=== PATIENT | female | born 1970 | race Caucasian/White ===

== ENCOUNTER 2017-01-29 10:48 | Inpatient (IN) | payer BC ==
--- NOTE | 2017-01-28 18:24 | PREOPHP ---
DATE OF ADMISSION: 01/29/2017 REASON FOR ADMISSION: The patient is to be admitted tomorrow for a total abdominal hysterectomy. CHIEF COMPLAINT: Excessive vaginal bleeding. HISTORY OF PRESENT ILLNESS: This is a 46-year-old female, 6, para 6 who has been complaining of excessive vaginal bleeding, passing clots and flooding through linen in her underwear. She was found to have multiple fibroids as the reason for her bleeding. She was counseled to have a hysterectomy. A total abdominal hysterectomy is planned for her, as well as bilateral salpingectomies to prevent the future cancer of the ovary. The procedure was discussed and described in detail to the patient even graphically here in the office. The alternatives, benefits, the risks and possible complications like infection, hemorrhage, pelvic or organ injury during the procedure were discussed in detail. She was allowed to ask questions. All questions were answered to her satisfaction. She signed the appropriate surgical informed consent. PAST MEDICAL HISTORY: The patient denies any medical problems, including diabetes, cardiovascular disease, hypertension, renal disease, liver disease, or neurological problems. She has had an IUD now for several years. This was confirmed by the ultrasound that diagnosed the fibroids. ALLERGIES: SHE HAS NO KNOWN ALLERGIES. FAMILY HISTORY: Noncontributory. REVIEW OF SYSTEMS: A 12 point review of systems noncontributory. PHYSICAL EXAMINATION: GENERAL APPEARANCE: Well developed, well nourished, slightly obese. Alert and oriented times 3. VITAL SIGNS: Height is 5 foot 4, and weight 176 pounds. BMI is 30. Temperature to be 98, blood pressure 135/98, respirations 16 per minute, pulse is 80 per minute, and regular. HEENT: Unremarkable, within normal limits. Pupils are PERRLA. NECK: Supple. Thyroid is not palpable. There is no lymphadenopathy. No masses or lumps. LUNGS: Clear to percussion auscultation. HEART: Revealed normal sinus rhythm, without murmur. ABDOMEN: Soft. No organomegalies or hernias. PELVIC: Normal external genitalia. Cervix is normal without lesions. Uterus enlarged with several fibroids, irregular. Then is no adnexal masses. EXTREMITIES: Lower extremities within normal limits. NEUROLOGICAL: Normal. IMPRESSION: 1. Multiple uterine fibroids. 2. Severe vaginal bleeding. PLAN: The patient will be admitted for FERMÍN and bilateral salpingectomy tomorrow 01/29/2017. Dictated By: Stone Osman MD /sabrina/darnell /Document#: [id number] CC: Jeff Camilo MD;*[facility]*
[2017-01-29] VITALS (26 sets, daily range): BP systolic 99–149; BP diastolic 49–74; PULSE 50–84; RESP 10–25; Ht 154.9 cm; Wt 79.0 kg
[~2017-01-29] VITALS: Ht 154.9 cm; Wt 79.0 kg
[~2017-01-29 10:48] MED LIST: ACETAMINOPHEN 1000 MG/100 ML IVPB ONE; CEFAZOLIN 1 GM INJ ONE; LIDOCAINE 2% (SDV) 5 ML INJ ONE; ONDANSETRON 4 MG INJ ONE; PROPOFOL 200 MG INJ ONE
[2017-01-29] MEDS ORDERED: VASOPRESSIN 20 UNITS INJ ONE (12:17)
[2017-01-29] MEDS ORDERED: SODIUM CL BACTERIOSTATIC 30 ML INJ ONE (12:17)
[2017-01-29] MEDS ORDERED: morphine SULFATE/PF (10 MG/10 ML) INJ ONE (12:45)
[2017-01-29] MEDS ORDERED: MIDAZOLAM 1 MG/ML 2 ML INJ ONE (12:51)
[2017-01-29] MEDS ORDERED: FENTAnyl 50 MCG/ML VIAL ONE (12:51)
[2017-01-29] MEDS ORDERED: FENTAnyl 50 MCG/ML VIAL IV PRN ×3 (13:00)
[2017-01-29] MEDS ORDERED: HYDROmorphONE (0.2 MG/ML) 10ML SYG IV PRN ×3 (13:00)
[2017-01-29] MEDS ORDERED: OXYCODONE/ACETAMINOPHEN (5/325) TAB PO PRN ×2 (13:00)
[2017-01-29] MEDS ORDERED: ONDANSETRON 4 MG INJ IV PRN ×3 (13:00→16:00)
[2017-01-29] MEDS ORDERED: MEPERIDINE 25 MG INJ IV PRN (13:00)
[2017-01-29] MEDS ORDERED: EPHEDrine SULFATE 50 MG/5 ML SYG IV PRN (13:00)
[2017-01-29] MEDS ORDERED: LABETALOL HCL 20MG INJ IV PRN (13:00)
[2017-01-29] MEDS ORDERED: DIPHENHYDRAMINE 50 MG INJ IV PRN ×2 (13:00→16:00)
[2017-01-29] MEDS ORDERED: hydrALAzine 20 MG INJ IV PRN (13:00)
[2017-01-29] MEDS ORDERED: ROCURONIUM 50 MG INJ ONE (13:38)
[2017-01-29] MEDS ORDERED: DEXAMETHASONE 4 MG/ML 1 ML INJ ONE (14:14)
[2017-01-29] MEDS: LACTATED RINGER'S 1,000 ML IV SCH (14:41)
--- NOTE | 2017-01-29 14:53 | OPR ---
Date/Time of Note Date/Time of Note DATE: 01/29/17 TIME: 14:49 Operative Report Preoperative Diagnosis Fibroids.Excessive vaginal bleeding. Postoperative Diagnosis Same. Operation/Procedure Performed Total abdominal hysterectomy,bilateral SO Surgeon: SIL ACKERMAN MD Anesthesia: general, spinal Estimated Blood Loss: 250 - 300 ml's Specimens Uterus,tubes and ovaries. Complications: None SIL ACKERMAN MD Jan 29, 2017 14:53
[2017-01-29] MEDS ORDERED: morphine 4 MG/ML VIAL IV PRN (15:00)
[2017-01-29] MEDS ORDERED: ZOLPIDEM 5 MG TAB PO PRN (16:00)
[2017-01-29] MEDS ORDERED: KETOROLAC 30 MG INJ IV PRN (16:00)
[2017-01-29] MEDS ORDERED: HYDROCODONE/APAP (5/325) TAB PO PRN (16:00)
[2017-01-29] MEDS ORDERED: HYDROmorphONE 1 MG/ML SYG IV PRN ×2 (16:00)
[2017-01-29] MEDS ORDERED: NALOXONE (0.4 MG/ML) INJ IV PRN (16:00)
--- NOTE | 2017-01-29 16:46 | OPR ---
DATE OF OPERATION: 01/29/2017 PREOPERATIVE DIAGNOSIS: Excessive vaginal bleeding with multiple fibroids. POSTOPERATIVE DIAGNOSIS: Same as above. OPERATION PERFORMED: Total abdominal hysterectomy, bilateral salpingo-oophorectomy. SURGEON: Dr. Stone Osman. AUTISM MOTOR SPECIALIST: Dr. Jeff Camilo. ANESTHESIA: Spinal and general by Dr. Taylor. ESTIMATED BLOOD LOSS: 300 cc. COMPLICATIONS: None. SPECIMENS: Patient's uterus, tubes, and ovaries were sent to pathology. OPERATIVE PROCEDURE AND FINDINGS: With the patient under general anesthesia after spinal anesthetic, she was laying on the table in the dorsal recumbent position. Her abdomen was prepped with ChloraPrep and her perineum and vagina with Betadine. The Ponce catheter was inserted. After 3 minutes, the patient was draped in the usual sterile fashion for this procedure. A Pfannenstiel incision was then carried through all layers of the abdominal wall. Once in the abdomen an enlarged uterus with multiple fibroids was found. Two normal ovaries and tubes were also found. There was no other sign of any pathology in the pelvis. The uterus was grasped with a [place] clamp and flipped up. An [place] self-retaining retractor was placed as well as vaginal abdominal packing. The hysterectomy was started on the left side by the clamp and the round ligament with the LigaSure and transected it. Then the broad ligament was opened anteriorly. The same was done on the contralateral side. The bladder was dissected away and removed from the uterine isthmus. The left infundibulopelvic ligament was isolated, and then cauterized with LigaSure and cut. Good hemostasis was observed. The same was done on the contralateral side. The uterine pedicles were skeletonized bilaterally. They were held with curved Manpreet clamps, cut and sutured with 0 Vicryl. Good hemostasis was obtained. The cardinal ligaments were isolated with straight Manpreet clamps, cut, and sutured with 0 Vicryl. The uterosacral ligaments were then isolated and clamped with curved Manpreet clamps, cut and sutured with 0 Vicryl. The bladder was dissected away further from the uterine isthmus. The fundus of the uterus was removed with the cautery. Then the dissection of the cervix was completed. The vagina was entered posteriorly and the cervix removed. Then the vagina was closed with individual [id number] sutures of 0 Vicryl. Good hemostasis was obtained. The pelvis was thoroughly washed with warm saline. This was suctioned out. No active bleeders were found. The vaginal cuff was peritonealized with continuous stitch of double 0 Chromic. The pelvis was thoroughly washed with water. No active bleeding was found. All the instruments and packing were removed from the patient's abdomen. The abdomen was closed in layers. The peritoneum was stitched with 0 Chromic. The fascia was closed with 2 convergent running sutures of 0 Vicryl. Finally, the edges of the skin were brought together with subcuticular 3-0 Monocryl. Sterile pressure dressing was applied. Patient taken to recovery room with all vital signs stable. ESTIMATED BLOOD LOSS: 300 cc of blood. Needle, sponge, and instrument count at the end of the procedure was correct twice. Dictated By: Stone Osman MD /fnt/clp /Document#: [id number] CC: Jeff Camilo MD; Dr. Taylor;*End*
[2017-01-29] MEDS: CEFAZOLIN 2 GM/50 ML (PMX) 50 ML IVPB SCH (23:05)
[2017-01-29] MEDS: KETOROLAC 30 MG INJ IV PRN (23:05)
[2017-01-30] MEDS: LACTATED RINGER'S 1,000 ML IV SCH ×3 (01:08→22:07)
[2017-01-30 02:00] VITALS: BP 109/60; RESP 20
[2017-01-30] MEDS: CEFAZOLIN 2 GM/50 ML (PMX) 50 ML IVPB SCH ×2 (05:43→13:35)
[2017-01-30] MEDS: PANTOPRAZOLE 40 MG INJ IV SCH (05:43)
[2017-01-30 06:29] LABS: BASOPHILS % 0.1 % (0.0-2.0); HEMATOCRIT 28.6 % (37.0-47.0); HEMOGLOBIN 8.7 g/dl (12.0-16.0); LYMPHOCYTES # 1.2 10^3/ul (0.8-2.9); LYMPHOCYTES % 7.6 % (15.0-51.0); MEAN CORPUSCULAR HEMOGLOBIN 24.5 pg (29.0-33.0); MEAN CORPUSCULAR HGB CONC 30.4 g/dl (32.0-37.0); MEAN CORPUSCULAR VOLUME 80.6 fl (82.0-101.0); MEAN PLATELET VOLUME 10.2 fl (7.4-10.4); MONOCYTE # 1.1 10^3/ul (0.3-0.9); MONOCYTES % 7.3 % (0.0-11.0); NEUTROPHIL # 12.9 10^3/ul (1.6-7.5); NEUTROPHILS % 84.4 % (39.0-77.0); PLATELET COUNT 365 10^3/UL (140-415); RED BLOOD COUNT 3.55 10^6/ul (4.20-5.40); RED CELL DISTRIBUTION WIDTH 16.7 % (11.5-14.5); WHITE BLOOD COUNT 15.2 10^3/ul (4.8-10.8)
[2017-01-30 06:59] LABS: CALCIUM 8.7 mg/dl (8.4-10.2); CREATININE 0.82 mg/dl (0.44-1.00); POTASSIUM 4.1 mmol/L (3.5-5.1)
[2017-01-30 08:21] VITALS: BP 112/57; RESP 20
--- NOTE | 2017-01-30 08:26 | OPPN ---
Date/Time of Note Date/Time of Note DATE: 01/30/17 TIME: 08:24 Anesthesia Follow up Anesthesia Follow up Last documented vital signs Vital Signs Date Time Temp Pulse Resp B/P Pulse Ox O2 Delivery O2 Flow Rate FiO2 01/30/17 08:21 98.2 79 20 112/57 95 01/29/17 16:58 Nasal Cannula 01/29/17 15:46 2.0 Respiratory function: WNL Cardiovascular function: WNL Comments post op day1 status post total abdominal hysterectomy with spinal duramorph for post operative pain management. pt without complaints, and pain well controlled with intrathecal duramorph supplemented with iv toradol. satisfactory pain control without adverse side effects. ARIELLA ARMENTA Jan 30, 2017 08:26
--- NOTE | 2017-01-30 08:36 | PN ---
Date/Time of Note Date/Time of Note DATE: 01/30/17 TIME: 08:31 Assessment/Plan VTE Prophylaxis VTE Prophylaxis Intervention: ambulation, anti-embolic stocking Lines/Catheters IV [facility] ([facility] Peripheral IV Urinary Cath still in place: Yes Assessment/Plan Chief Complaint/Hosp Course Doing well,however WBC are 15 with neutrophiles predominance.Afebrile. Problems: Assessment/Plan Start Lovenox for DVT prophylaxis and Flagyl for anaerobe coverage Repeat cbc in AM Subjective 24 Hr Interval Summary Free Text/Dictation Sitting up in bed in good spirits.Asking for food. Exam/Review of Systems Vital Signs Vitals Vital Signs Date Time Temp Pulse Resp B/P Pulse Ox O2 Delivery O2 Flow Rate FiO2 01/30/17 08:21 98.2 79 20 112/57 95 01/29/17 16:58 Nasal Cannula 01/29/17 15:46 2.0 Intake and Output 01/29/17 01/29/17 01/30/17 15:00 23:00 07:00 Intake Total 2700 ml 680 ml Output Total 400 ml 300 ml 600 ml Balance 2300 ml -300 ml 80 ml Results Result Diagram: 01/30/17 0551 01/30/17 0551 Results 24 hrs Laboratory Tests Test 01/30/17 05:51 White Blood Count 15.2 H Red Blood Count 3.55 L Hemoglobin 8.7 L Hematocrit 28.6 L Mean Corpuscular Volume 80.6 L Mean Corpuscular Hemoglobin 24.5 L Mean Corpuscular Hemoglobin Concent 30.4 L Red Cell Distribution Width 16.7 H Platelet Count 365 Mean Platelet Volume 10.2 Neutrophils % 84.4 H Lymphocytes % 7.6 L Monocytes % 7.3 Eosinophils % 0.0 Basophils % 0.1 Nucleated Red Blood Cells % 0.0 Neutrophils # 12.9 H Lymphocytes # 1.2 Monocytes # 1.1 H Eosinophils # 0.0 Basophils # 0.0 Nucleated Red Blood Cells # 0.0 Sodium Level 146 H Potassium Level 4.1 Chloride Level 105 Carbon Dioxide Level 27 Anion Gap 18 H Blood Urea Nitrogen 17 Creatinine 0.82 Glucose Level 119 Calcium Level 8.7 Medications Medications Current Medications Lactated Ringer's 1,000 ml @ 100 mls/hr Q10H IV Last administered on 01/30/17t 01:08; Admin Dose 100 MLS/HR; Start 01/29/17 at 14:41 Cefazolin Sodium/ Dextrose (Ancef 2 Gm/50 ml (Pmx)) 50 ml @ 100 mls/hr Q8 IVPB Last administered on 01/30/17 05:43; Admin Dose 100 MLS/HR; Start 01/29/17 at 22:00; Stop 01/30/17 at 14:29 Acetaminophen (Tylenol Tab) 650 mg Q4H PRN PO PAIN LEVEL 1-5; Start 01/29/17 at 15:00 Ibuprofen (Motrin) 600 mg Q8H PRN PO PAIN AND OR ELEVATED TEMP; Start 01/29/17 at 15:00 Oxycodone/ Acetaminophen (Percocet (5/ 325)) 1 tab Q4H PRN PO PAIN LEVEL 6-10; Start 01/29/17 at 15:00 Morphine Sulfate (morphine) 2 mg Q2H PRN IV BREAKTHROUGH PAIN; Start 01/29/17 at 15:00 Ondansetron HCl (Zofran Inj) 4 mg Q6H PRN IV NAUSEA AND/OR VOMITING Last administered on 01/29/17 23:05; Admin Dose 4 MG; Start 01/29/17 at 15:00 Oxycodone/ Acetaminophen (Percocet (5/ 325)) 2 tab Q4H PRN PO PAIN; Start at 15:00 Ketorolac Tromethamine (Toradol) 30 mg Q6H PRN IV PAIN Last administered on 01/29 23:05; Admin Dose 30 MG; Start 01/29/17 at 15:00; Stop 02/01/17 at 14:59 Pantoprazole (Protonix Iv) 40 mg DAILY@06 IV Last administered on 01/30/17 05: 43; Admin Dose 40 MG; Start 01/30/17 at 06:00 Hydromorphone HCl (Dilaudid) 0.2 mg Q2H PRN IV PAIN LEVEL 1-5; Start 01/29/17 at 16:00; Stop 01/30/17 at 14:00 Hydromorphone HCl (Dilaudid) 0.4 mg Q2H PRN IV PAIN LEVEL 6-10; Start 01/29/17 at 16:00; Stop 01/30/17 at 14:00 Ketorolac Tromethamine (Toradol) 30 mg Q6H PRN IV PAIN LEVEL 6-10; Start at 16:00; Stop 01/30/17 at 14:00 Acetaminophen/ Hydrocodone Bitart ([place] (5/325)) 1 tab Q4H PRN PO PAIN LEVEL 4 -6; Start 01/29/17 at 16:00; Stop 01/30/17 at 14:00 Diphenhydramine HCl (Benadryl) 25 mg Q4H PRN IV PRURITUS; Start 01/29/17 at 16: 00; Stop 01/30/17 at 14:00 Ondansetron HCl (Zofran Inj) 4 mg Q6H PRN IV NAUSEA AND/OR VOMITING; Start 01/29 at 16:00; Stop 01/30/17 at 14:00 Naloxone HCl (Narcan) 0.2 mg Q2M PRN IV FOR RESP RATE 8 OR LESS; Start 01/29/17 at 16:00; Stop 01/30/17 at 14:00 SIL ACKERMAN MD Jan 30, 2017 08:36
[2017-01-30] MEDS: metroNIDAZOLE 500 MG/NS (PMX) 100 ML IVPB SCH ×3 (09:10→22:05)
[2017-01-30] MEDS: KETOROLAC 30 MG INJ IV PRN ×2 (09:10→15:36)
[2017-01-30] MEDS: ENOXAPARIN 40 MG/0.4 ML SYG SC SCH (09:11)
[2017-01-30 15:26] VITALS: BP 140/60; RESP 20
[2017-01-30] MEDS: OXYCODONE/ACETAMINOPHEN (5/325) TAB PO PRN ×2 (18:21→22:58)
[2017-01-30 20:00] VITALS: BP 137/72; RESP 20
[2017-01-31 02:00] VITALS: BP 124/67; RESP 20
[2017-01-31] MEDS: ACETAMINOPHEN 325 MG TAB PO PRN (03:12)
[2017-01-31] MEDS: metroNIDAZOLE 500 MG/NS (PMX) 100 ML IVPB SCH ×3 (05:18→22:04)
[2017-01-31] MEDS: PANTOPRAZOLE 40 MG INJ IV SCH (05:18)
[2017-01-31 05:56] LABS: BASOPHILS % 0.2 % (0.0-2.0); EOSINOPHILS # 0.1 10^3/ul (0.0-0.5); EOSINOPHILS % 1.1 % (0.0-7.0); HEMATOCRIT 26.4 % (37.0-47.0); LYMPHOCYTES # 2.2 10^3/ul (0.8-2.9); LYMPHOCYTES % 23.4 % (15.0-51.0); MEAN CORPUSCULAR HEMOGLOBIN 24.3 pg (29.0-33.0); MEAN CORPUSCULAR HGB CONC 30.3 g/dl (32.0-37.0); MEAN CORPUSCULAR VOLUME 80.2 fl (82.0-101.0); MEAN PLATELET VOLUME 10.4 fl (7.4-10.4); MONOCYTE # 0.7 10^3/ul (0.3-0.9); MONOCYTES % 7.1 % (0.0-11.0); NEUTROPHIL # 6.3 10^3/ul (1.6-7.5); PLATELET COUNT 313 10^3/UL (140-415); RED BLOOD COUNT 3.29 10^6/ul (4.20-5.40); WHITE BLOOD COUNT 9.3 10^3/ul (4.8-10.8)
[2017-01-31] MEDS: LACTATED RINGER'S 1,000 ML IV SCH (06:41)
[2017-01-31] MEDS: KETOROLAC 30 MG INJ IV PRN (07:53)
[2017-01-31 08:00] VITALS: BP 139/80; RESP 18
[2017-01-31] MEDS: ENOXAPARIN 40 MG/0.4 ML SYG SC SCH (08:00)
[2017-01-31] MEDS: OXYCODONE/ACETAMINOPHEN (5/325) TAB PO PRN ×2 (11:02→22:04)
[2017-01-31] MEDS ORDERED: morphine 2 MG INJ IV PRN (12:00)
[2017-01-31] MEDS: MAGNESIUM HYDROXIDE 30ML CUP PO SCH ×2 (13:58→22:04)
[2017-01-31 14:00] VITALS: BP 148/77; RESP 19
[2017-01-31] MEDS: IBUPROFEN 600 MG TAB PO PRN (18:05)
--- NOTE | 2017-01-31 20:17 | PN ---
Date/Time of Note Date/Time of Note DATE: 01/31/17 TIME: 20:04 Assessment/Plan VTE Prophylaxis VTE Prophylaxis Intervention: ambulation, LMWH Lines/Catheters IV Catheter Type (from Nrsg): Peripheral IV Ponec in Place (from Nrsg): No Assessment/Plan Assessment/Plan post FERMÍN BSo #2 stable plan d/s home in am Subjective 24 Hr Interval Summary S; c/oepigastric pain and incisional pain flatus+ no b.m vomit x1 void ok Constitutional: flatus, other Pain Control: moderate Exam/Review of Systems Vital Signs Vitals Vital Signs Date Time Temp Pulse Resp B/P Pulse Ox O2 Delivery O2 Flow Rate FiO2 01/31/17 14:00 98.1 79 19 148/77 99 01/29/17 16:58 Nasal Cannula 01/29/17 15:46 2.0 Intake and Output 01/30/17 01/30/17 01/31/17 15:00 23:00 07:00 Intake Total 150 ml 1800 ml 1100 ml Balance 150 ml 1800 ml 1100 ml Exam Free Text/Dictation abdomen soft wound dry no vaginal bleeding calf neg for tenderness wbc reduced urine culture no growth path uterine fibroid and adenomyosis Constitutional: alert, oriented, well developed Psych: nl mood/affect, no complaints Head: atraumatic, normocephalic Eyes: EOMI, nl conjunctiva, nl lids, nl sclera ENMT: mucosa pink and moist, nl external ears & nose, nl lips & teeth, nl nasal mucosa & septum Neck: non-tender, supple Respiratory: clear to auscultation, normal air movement Cardiovascular: nl pulses, regular rate and rhythm Gastrointestinal: nl liver, spleen, non-tender, other, soft Musculoskeletal: nl extremities to inspection, nl gait and stance Extremities: normal pulses Neurological: VAULT KEEPER II-XII intact, nl mental status, nl speech, nl strength Skin: nl turgor, rash or lesions Lymph: nl lymph nodes Results Result Diagram: 01/31/17 0455 01/30/17 0551 LIZET HAIR MD Jan 31, 2017 20:14
[2017-01-31 21:10] VITALS: BP 145/77; RESP 18
[2017-01-31] MEDS: FAMOTIDINE 20 MG TAB PO SCH (22:04)
[2017-02-01 02:52] VITALS: BP 137/71; RESP 16
[2017-02-01] MEDS: metroNIDAZOLE 500 MG/NS (PMX) 100 ML IVPB SCH ×3 (05:32→22:05)
[2017-02-01] MEDS: PANTOPRAZOLE 40 MG INJ IV SCH (05:32)
[2017-02-01] MEDS: IBUPROFEN 600 MG TAB PO PRN (05:34)
[2017-02-01] MEDS: KETOROLAC 30 MG INJ IV PRN ×2 (07:49→14:02)
[2017-02-01] MEDS: MAGNESIUM HYDROXIDE 30ML CUP PO SCH ×2 (09:00→22:06)
--- NOTE | 2017-02-01 09:00 | PN ---
Date/Time of Note Date/Time of Note DATE: 02/01/17 TIME: 08:54 Assessment/Plan Lines/Catheters IV Catheter Type (from Nrsg): Saline Lock Pnoce in Place (from Nrsg): No Subjective 24 Hr Interval Summary S: epigastric pain is far better no more vomiting but had x2 watery diarrhea O: vss stable afebrile abdomen soft wound dry no vaginal bleeding ext neg A S/P FERMÍN BSO stable diarrhea P stool culture if continue stay on clear liquid today Feeding: clear Pain Control: mild Exam/Review of Systems Vital Signs Vitals Vital Signs Date Time Temp Pulse Resp B/P Pulse Ox O2 Delivery O2 Flow Rate FiO2 02/01/17 02:52 98.1 82 16 137/71 96 01/29/17 16:58 Nasal Cannula 01/29/17 15:46 2.0 Intake and Output 01/31/17 01/31/17 02/01/17 15:00 23:00 07:00 Intake Total 600 ml 840 ml 720 ml Balance 600 ml 840 ml 720 ml Results Result Diagram: 01/31/17 0455 01/30/17 0551 LIZET HAIR MD Feb 01, 2017 08:59
[2017-02-01] MEDS: FAMOTIDINE 20 MG TAB PO SCH ×2 (09:09→22:05)
[2017-02-01] MEDS: ENOXAPARIN 40 MG/0.4 ML SYG SC SCH (09:11)
[2017-02-01 09:57] VITALS: BP 138/78; RESP 18
[2017-02-01] MEDS: OXYCODONE/ACETAMINOPHEN (5/325) TAB PO PRN (12:40)
[2017-02-01 15:58] VITALS: BP 166/90; RESP 18
[2017-02-01 19:53] VITALS: BP 161/73; RESP 18
[2017-02-01 22:04] VITALS: BP 182/87; PULSE 82
[2017-02-01 22:52] VITALS: BP 164/87; PULSE 80
[2017-02-01] MEDS: LABETALOL 200 MG TAB PO SCH (22:54)
[2017-02-02] VITALS (7 sets, daily range): BP systolic 112–163; BP diastolic 59–87; PULSE 72–82; RESP 16–19
[2017-02-02] MEDS: metroNIDAZOLE 500 MG/NS (PMX) 100 ML IVPB SCH ×3 (05:13→21:15)
[2017-02-02] MEDS: PANTOPRAZOLE 40 MG INJ IV SCH (05:13)
[2017-02-02] MEDS: ACETAMINOPHEN 325 MG TAB PO PRN (07:53)
[2017-02-02] MEDS: FAMOTIDINE 20 MG TAB PO SCH ×2 (08:16→20:48)
[2017-02-02] MEDS: LABETALOL 200 MG TAB PO SCH (08:17)
[2017-02-02] MEDS: MAGNESIUM HYDROXIDE 30ML CUP PO SCH ×2 (08:17→20:46)
[2017-02-02] MEDS: ENOXAPARIN 40 MG/0.4 ML SYG SC SCH (08:18)
--- NOTE | 2017-02-02 08:37 | PN ---
Date/Time of Note Date/Time of Note DATE: 02/02/17 TIME: 08:33 Assessment/Plan VTE Prophylaxis VTE Prophylaxis Intervention: ambulation, anti-embolic stocking, LMWH Lines/Catheters IV Catheter Type (from [facility]): Saline Lock Urinary Cath still in place: No Assessment/Plan Chief Complaint/Hosp Course Doing well,however WBC are 15 with neutrophiles predominance.Afebrile. Problems: Assessment/Plan Hypertensive crisis,the patient was not aware of being hypertensive. Cont'd Hospitalization Reason: Severe hypertension,consult with Hospitalist for better control. Subjective 24 Hr Interval Summary Free Text/Dictation Complains of headaches,had very high BPs last night and was medicated with Labetalol 200 mg.BP still high,will consult with Internal medicine for better control.Also had diarrhea, but has been taking MOM BID.Stop this med now. Exam/Review of Systems Vital Signs Vitals Vital Signs Date Time Temp Pulse Resp B/P Pulse Ox O2 Delivery O2 Flow Rate FiO2 02/02/17 02:03 98.5 82 16 155/85 97 01/29/17 16:58 Nasal Cannula 01/29/17 15:46 2.0 Intake and Output 02/01/17 02/01/17 02/02/17 15:00 23:00 07:00 Intake Total 820 ml 500 ml Balance 820 ml 500 ml Results Result Diagram: 01/31/17 0455 01/30/17 0551 Results 24 hrs Laboratory Tests Test 02/02/17 05:57 02/02/17 05:57 Lab Scanned Report LAB REFERENCE LAB Medications Medications Current Medications Acetaminophen (Tylenol Tab) 650 mg Q4H PRN PO PAIN LEVEL 1-5 Last administered on 02/02/17 07:53; Admin Dose 650 MG; Start 01/29/17 at 15:00 Ibuprofen (Motrin) 600 mg Q8H PRN PO PAIN AND OR ELEVATED TEMP Last administered on 02/01/17 05:34; Admin Dose 600 MG; Start 01/29/17 at 15:00 Oxycodone/ Acetaminophen (Percocet (5/ 325)) 1 tab Q4H PRN PO PAIN LEVEL 6-10 Last administered on 01/31/17 22:04; Admin Dose 1 TAB; Start 01/29/17 at 15:00 Ondansetron HCl (Zofran Inj) 4 mg Q6H PRN IV NAUSEA AND/OR VOMITING Last administered on 01/29/17 23:05; Admin Dose 4 MG; Start 01/29/17 at 15:00 Oxycodone/ Acetaminophen (Percocet (5/ 325)) 2 tab Q4H PRN PO PAIN Last administered on 02/01/17 12:40; Admin Dose 2 TAB; Start 01/29/17 at 15:00 Pantoprazole (Protonix Iv) 40 mg DAILY@06 IV Last administered on 02/02/17 05: 13; Admin Dose 40 MG; Start 01/30/17 at 06:00 Enoxaparin Sodium 40 mg 40 mg DAILY SC Last administered on 02/02/17 08:18; Admin Dose 40 MG; Start 01/30/17 at 09:00 Metronidazole (Flagyl 500 Mg (Pmx)) 100 ml @ 100 mls/hr Q8 IVPB Last administered on 02/02/17 05:13; Admin Dose 100 MLS/HR; Start 01/30/17 at 09:00 Morphine Sulfate (morphine) 2 mg Q2H PRN IV BREAKTHROUGH PAIN; Start 01/31/17 at 12:00 Magnesium Hydroxide (Milk Of Mag) 30 ml BID PO Last administered on 02/02/17 08 :17; Admin Dose 30 ML; Start 01/31/17 at 13:30 Famotidine (Pepcid) 20 mg BID PO Last administered on 02/02/17 08:16; Admin Dose 20 MG; Start 01/31/17 at 21:00 Labetalol HCl (Normodyne) 200 mg BID PO Last administered on 02/02/17 08:17; Admin Dose 200 MG; Start 02/01/17 at 22:30 SIL ACKERMAN MD Feb 02, 2017 08:37
[2017-02-02] MEDS ORDERED: AMLODIPINE 10 MG TAB PO ONE (13:00)
[2017-02-02] MEDS: OXYCODONE/ACETAMINOPHEN (5/325) TAB PO PRN (13:11)
[2017-02-02] MEDS: IBUPROFEN 600 MG TAB PO PRN (14:07)
--- NOTE | 2017-02-02 18:37 | CONS ---
Date/Time of Note Date/Time of Note DATE: 02/02/17 TIME: 18:35 Assessment/Plan Assessment/Plan Additional Assessment/Plan 46 yo F with pmhx fibroids sp elective FERMÍN BSO 8.3. Hospitalist service consulted for persistently elevated BPs. Given pt without sig pain, suspect this is actually true primary/essential hypertension. Only known risk factor in this patient is her obesity PLAN start norvasc, pt advised to watch for leg swelling As no evidence of CKD, no compelling indication to pick acei check a1c, lipids, UA (for protein), EKG hospitalist service will cont to follow Consultation Date/Type/Reason Admit Date/Time Jan 29, 2017 at 10:48 Type of Consultation: hospitalist Reason for Consultation elevated BP Hx of Present Illness 46 yo F with pmhx fibroids admitted for elective hysterectomy. Post op pt noted to have persistently elevated BPs which prompted hospitalist consult. Pt denies any previous hx consistently elevated BPs. Denies sig abd pain. Reports feeling a little anxious. No CP or SOB. PMHx: fibroids Fam hx: no htn, +DM in mom Psychological: nl mood/affect, no complaints Social History Smoking Status: Never smoker Exam/Review of Systems Vital Signs Vitals Vital Signs Date Time Temp Pulse Resp B/P Pulse Ox O2 Delivery O2 Flow Rate FiO2 02/02/17 14:00 98.2 84 16 137/67 98 01/29/17 16:58 Nasal Cannula 01/29/17 15:46 2.0 Intake and Output 02/01/17 02/01/17 02/02/17 15:00 23:00 07:00 Intake Total 820 ml 500 ml Balance 820 ml 500 ml Exam nad EOMI MMM no mrg lungs clear abd soft surgical site c/d/i no rashes no le edema labs noted: +AG, Cr nl Results Result Diagram: 01/31/17 0455 01/30/17 0551 Results 24 hrs Laboratory Tests Test 02/02/17 05:57 02/02/17 05:57 Lab Scanned Report LAB REFERENCE LAB Medications Medications Current Medications Acetaminophen (Tylenol Tab) 650 mg Q4H PRN PO PAIN LEVEL 1-5 Last administered on 02/02/17t 07:53; Admin Dose 650 MG; Start 01/29/17 at 15:00 Ibuprofen (Motrin) 600 mg Q8H PRN PO PAIN AND OR ELEVATED TEMP Last administered on 02/02/17 14:07; Admin Dose 600 MG; Start 01/29/17 at 15:00 Oxycodone/ Acetaminophen (Percocet (5/ 325)) 1 tab Q4H PRN PO PAIN LEVEL 6-10 Last administered on 01/31/17 22:04; Admin Dose 1 TAB; Start 01/29/17 at 15:00 Ondansetron HCl (Zofran Inj) 4 mg Q6H PRN IV NAUSEA AND/OR VOMITING Last administered on 01/29/17 23:05; Admin Dose 4 MG; Start 01/29/17 at 15:00 Oxycodone/ Acetaminophen (Percocet (5/ 325)) 2 tab Q4H PRN PO PAIN Last administered on 02/02/17 13:11; Admin Dose 2 TAB; Start 01/29/17 at 15:00 Pantoprazole (Protonix Iv) 40 mg DAILY@06 IV Last administered on 02/02/17 05: 13; Admin Dose 40 MG; Start 01/30/17 at 06:00 Enoxaparin Sodium 40 mg 40 mg DAILY SC Last administered on 02/02/17 08:18; Admin Dose 40 MG; Start 01/30/17 at 09:00 Metronidazole (Flagyl 500 Mg (Pmx)) 100 ml @ 100 mls/hr Q8 IVPB Last administered on 02/02/17 13:08; Admin Dose 100 MLS/HR; Start 01/30/17 at 09:00 Morphine Sulfate (morphine) 2 mg Q2H PRN IV BREAKTHROUGH PAIN; Start 01/31/17 at 12:00 Magnesium Hydroxide (Milk Of Mag) 30 ml BID PO Last administered on 02/02/17 08 :17; Admin Dose 30 ML; Start 01/31/17 at 13:30 Famotidine (Pepcid) 20 mg BID PO Last administered on 02/02/17 08:16; Admin Dose 20 MG; Start 01/31/17 at 21:00 Amlodipine Besylate (Norvasc) 10 mg DAILY PO ; Start 02/03/17 at 09:00 NAYELI VALENZUELA MD Feb 02, 2017 18:37
[2017-02-02 23:11] LABS: ADD UMIC YES; UR AMORPHOUS CRYSTAL FEW /HPF (NONE SEEN); UR ASCORBIC ACID NEGATIVE (NEGATIVE); UR BILIRUBIN (Dip) NEGATIVE (NEGATIVE); UR BLOOD (Dip) 2+ mg/dL (NEGATIVE); UR CLARITY CLOUDY (CLEAR); UR COLOR YELLOW (YELLOW); UR GLUCOSE (Dip) NEGATIVE (NEGATIVE); UR KETONES (Dip) NEGATIVE (NEGATIVE); UR LEUKOCYTE ESTERASE (Dip) TRACE Leu/ul (NEGATIVE); UR NITRITE (Dip) NEGATIVE (NEGATIVE); UR RBC 7 /HPF (0-5); UR SQUAMOUS EPITHELIAL CELL FEW /HPF (FEW); UR TOTAL PROTEIN (Dip) 1+ mg/dl (NEGATIVE); UR UROBILINOGEN (Dip) NEGATIVE (NEGATIVE)
[2017-02-03 02:36] VITALS: BP 134/64; RESP 19
[2017-02-03] MEDS: metroNIDAZOLE 500 MG/NS (PMX) 100 ML IVPB SCH ×3 (05:16→21:13)
[2017-02-03] MEDS: PANTOPRAZOLE 40 MG INJ IV SCH (05:16)
[2017-02-03 06:40] LABS: CHOL/HDL RATIO 6.6 RATIO; CREATININE 0.83 mg/dl (0.44-1.00); POTASSIUM 3.8 mmol/L (3.5-5.1)
[2017-02-03 08:07] VITALS: BP 140/73; RESP 20
[2017-02-03] MEDS: FAMOTIDINE 20 MG TAB PO SCH ×2 (08:48→21:13)
[2017-02-03] MEDS: MAGNESIUM HYDROXIDE 30ML CUP PO SCH ×2 (08:48→21:13)
[2017-02-03] MEDS: ENOXAPARIN 40 MG/0.4 ML SYG SC SCH (08:51)
[2017-02-03] MEDS ORDERED: AMLODIPINE 10 MG TAB PO SCH (09:00)
[2017-02-03] MEDS: OXYCODONE/ACETAMINOPHEN (5/325) TAB PO PRN (10:37)
[2017-02-03 11:13] LABS: ADD UMIC YES; UR ASCORBIC ACID NEGATIVE (NEGATIVE); UR BILIRUBIN (Dip) NEGATIVE (NEGATIVE); UR BLOOD (Dip) 2+ mg/dL (NEGATIVE); UR CLARITY CLEAR (CLEAR); UR COLOR YELLOW (YELLOW); UR GLUCOSE (Dip) NEGATIVE (NEGATIVE); UR KETONES (Dip) NEGATIVE (NEGATIVE); UR LEUKOCYTE ESTERASE (Dip) TRACE Leu/ul (NEGATIVE); UR NITRITE (Dip) NEGATIVE (NEGATIVE); UR RBC 21 /HPF (0-5); UR SPECIFIC GRAVITY (Dip) 1.014 (1.003-1.030); UR TOTAL PROTEIN (Dip) 2+ mg/dl (NEGATIVE); UR UROBILINOGEN (Dip) NEGATIVE (NEGATIVE)
[2017-02-03 14:30] VITALS: BP 133/62; RESP 20
--- NOTE | 2017-02-03 16:19 | CONS ---
Date/Time of Note Date/Time of Note DATE: 02/03/17 TIME: 16:16 Assessment/Plan Assessment/Plan Additional Assessment/Plan 46 yo F with pmhx fibroids sp elective FERMÍN BSO 8.3. Hospitalist service consulted for persistently elevated BPs. BP improved with ccb, however UA with sig proteinuria of unclear etio. PLAN change norvasc to acei given proteinuria nephrology consult hospitalist service will cont to follow Consultation Date/Type/Reason Admit Date/Time Jan 29, 2017 at 10:48 Initial Consult Date Type of Consultation: hospitalist 24 HR Interval Summary Free Text/Dictation Pt feels well and BPs improved Exam/Review of Systems Vital Signs Vitals Vital Signs Date Time Temp Pulse Resp B/P Pulse Ox O2 Delivery O2 Flow Rate FiO2 02/03/17 14:30 98.1 85 20 133/62 96 Intake and Output 02/02/17 02/02/17 02/03/17 15:00 23:00 07:00 Intake Total 100 ml 1120 ml 400 ml Balance 100 ml 1120 ml 400 ml Exam nad no mrg lungs clear abd soft no rashes UA with 1-2+ protein, +microhematuria, p/c ratio ~1. EKG NSR. a1c nl, lipids ok Results Result Diagram: 01/31/17 0455 02/03/17 0512 Results 24 hrs Laboratory Tests Test 02/02/17 22:35 02/03/17 05:12 02/03/17 10:40 Urine Color YELLOW YELLOW Urine Clarity CLOUDY A CLEAR Urine pH 8.0 6.0 Urine Specific [place] 1.010 1.014 Urine Ketones NEGATIVE NEGATIVE Urine Nitrite NEGATIVE NEGATIVE Urine Bilirubin NEGATIVE NEGATIVE Urine Urobilinogen NEGATIVE NEGATIVE Urine Leukocyte Esterase TRACE A TRACE A Urine Microscopic RBC 7 H 21 H Urine Microscopic WBC 4 6 H Urine Squamous Epithelial Cells FEW Urine Amorphous Crystals FEW A Urine Hemoglobin 2+ H 2+ H Urine Glucose NEGATIVE NEGATIVE Urine Total Protein 1+ H 2+ H Sodium Level 145 H Potassium Level 3.8 Chloride Level 105 Carbon Dioxide Level 27 Anion Gap 17 H Blood Urea Nitrogen 16 Creatinine 0.83 Glucose Level 98 Hemoglobin A1c 5.4 Calcium Level 9.0 Triglycerides Level 190 H Cholesterol Level 179 LDL Cholesterol, Calculated 114 HDL Cholesterol 27 L Cholesterol/HDL Ratio 6.6 Urine Random Creatinine 81.79 Medications Medications Current Medications Acetaminophen (Tylenol Tab) 650 mg Q4H PRN PO PAIN LEVEL 1-5 Last administered on 02/02/17 07:53; Admin Dose 650 MG; Start 01/29/17 at 15:00 Ibuprofen (Motrin) 600 mg Q8H PRN PO PAIN AND OR ELEVATED TEMP Last administered on 02/02/17 14:07; Admin Dose 600 MG; Start 01/29/17 at 15:00 Oxycodone/ Acetaminophen (Percocet (5/ 325)) 1 tab Q4H PRN PO PAIN LEVEL 6-10 Last administered on 02/03/17 10:37; Admin Dose 1 TAB; Start 01/29/17 at 15:00 Ondansetron HCl (Zofran Inj) 4 mg Q6H PRN IV NAUSEA AND/OR VOMITING Last administered on 01/29/17 23:05; Admin Dose 4 MG; Start 01/29/17 at 15:00 Oxycodone/ Acetaminophen (Percocet (5/ 325)) 2 tab Q4H PRN PO PAIN Last administered on 02/02/17 13:11; Admin Dose 2 TAB; Start 01/29/17 at 15:00 Enoxaparin Sodium 40 mg 40 mg DAILY SC Last administered on 02/03/17 08:51; Admin Dose 40 MG; Start 01/30/17 at 09:00 Metronidazole (Flagyl 500 Mg (Pmx)) 100 ml @ 100 mls/hr Q8 IVPB Last administered on 02/03/17 13:29; Admin Dose 100 MLS/HR; Start 01/30/17 at 09:00 Morphine Sulfate (morphine) 2 mg Q2H PRN IV BREAKTHROUGH PAIN Last administered on 02/03/17 12:38; Admin Dose 2 MG; Start 01/31/17 at 12:00 Magnesium Hydroxide (Milk Of Mag) 30 ml BID PO Last administered on 02/03/17 08 :48; Admin Dose 30 ML; Start 01/31/17 at 13:30 Famotidine (Pepcid) 20 mg BID PO Last administered on 02/03/17 08:48; Admin Dose 20 MG; Start 01/31/17 at 21:00 Amlodipine Besylate (Norvasc) 10 mg DAILY PO Last administered on 02/03/17 08: 49; Admin Dose 10 MG; Start 02/03/17 at 09:00 Pantoprazole (Protonix Tab) 40 mg DAILY@06 PO ; Start 02/04/17 at 06:00 NAYELI VALENZUELA MD Feb 03, 2017 16:19
--- NOTE | 2017-02-03 17:38 | RADRPT ---
Vent Rate: 74 bpm RR Interval: 0 msec IA Interval: 168 msec QRS Duration: 86 msec QT Interval: 392 msec QTC Interval: 435 msec P-R-T [place]: 28 - 68 - 60 degrees Normal sinus rhythm Normal ECG Electronically Signed By: Rohit Domingo [id number]
[2017-02-03 20:05] VITALS: BP 141/80; RESP 18
--- NOTE | 2017-02-03 21:10 | RADRPT ---
PROCEDURE: XR Chest AP portable CLINICAL INDICATION: Proteinuria TECHNIQUE: An AP portable radiograph of the chest was submitted. COMPARISON: None. FINDINGS: Support Hardware: None Cardiovascular: The cardiovascular silhouette appears unremarkable. Lung Chavez: The lung chavez appear clear with no nodule, alveolar infiltrate, or interstitial promi nence evident. Pleural Spaces: No pneumothorax or pleural effusion is identified. Osseous Structures: The osseous structures appear intact. Soft Tissues: The soft tissues appear generous. IMPRESSION: Unremarkable portable chest. Physician Laura Date Time Electronically viewed and signed by Radha Waldron Physician on 02/03/2017 21:09 /
[2017-02-04 02:44] VITALS: BP 138/67; RESP 18
--- NOTE | 2017-02-04 03:33 | CONS ---
DATE OF ADMISSION: 01/29/2017 DATE OF CONSULTATION: 02/03/2017 Thank you, Dr. Anguiano, for asking me to participate in medical management of this patient. REASON FOR CONSULTATION: Hypertension and proteinuria. HISTORY OF PRESENT ILLNESS: This 46-year-old female was admitted to this hospital electively to have a total abdominal hysterectomy with bilateral salpingo-oophorectomy, which was performed on 01/29/2017. The surgery was performed by Dr. Stone Osman. Postoperatively, the patient has had elevated blood pressures, which prompted a hospitalist consultation. Dr. Anguiano saw the patient and ordered some appropriate laboratory tests, including a urinalysis and a urine protein to creatinine ratio, which did show proteinuria. The patient also had some microscopic hematuria. The patient on urine protein creatinine ratio had 1.2 grams of protein per gram of creatinine, which is elevated. I did speak with the patient and her daughter. The patient denies a history of prior kidney disease. She has never been told that she had proteinuria or high blood pressure. The patient was admitted for the hysterectomy because of fibroids and persistent excessive vaginal bleeding. The patient was passing clots and flooding through her linen in her underwear. The patient did have multiple fibroids as the reason for her bleeding. The patient specifically denies any history of diabetes mellitus, liver disease, or neurologic problems. She has had 6 children that she says were delivered vaginally without any medical problems during her pregnancies. She denies a history of gestational diabetes. PAST SURGICAL HISTORY: The patient denies any prior surgery. MEDICATIONS: She has not been on medication prior to this admission. FAMILY HISTORY: Remarkable for diabetes. Her mother had diabetes and had retinopathy and questionable kidney disease due to the diabetes. The patient says her mother " of diabetes." There is no other family history of kidney disease to the patient's knowledge. MEDICATION: In the hospital include: 1. Lisinopril 20 mg a day. 2. Pantoprazole 40 mg a day. 3. Famotidine 20 mg twice a day. 4. Milk of magnesia. 5. Morphine for pain. 6. Enoxaparin 40 mg daily subcutaneously. 7. Metronidazole. 8. Acetaminophen. 9. Percocet. PHYSICAL EXAMINATION: GENERAL: At this time, reveals a well-developed female in no apparent distress. Temperature 98.1, pulse 85, respirations 20, blood pressure 133/62, O2 sat of 96 percent on room air. HEENT: Head is normocephalic. Eyes, extraocular muscles are intact. Nose and mouth are normal. NECK: Supple. No neck vein distention. LUNGS: Clear to auscultation. HEART: Regular rhythm. No murmurs, gallops, or rubs. ABDOMEN: She has some lower abdominal tenderness over a fresh wound, which is closed without any erythema or drainage. She has no upper abdominal tenderness. No masses or megaly. EXTREMITIES: No peripheral edema. IMPRESSION: Proteinuria. This patient presents now with hypertension and proteinuria. She has 1.2 grams of protein on her urine protein creatinine ratio. Her urinalysis did show some microscopic hematuria, but no red blood cell casts, etc. Her blood pressure is now well controlled on lisinopril. Her renal function is normal with a serum creatinine of 0.83. She denies a history of diabetes, and her blood sugar has been normal. The etiology of her proteinuria needs to be further evaluated. Need to rule out other diseases such as multiple myeloma, systemic lupus erythematosus, vasculitis, diabetes mellitus. PLAN: 1. Will order further laboratory testing in the morning, including complete metabolic panel to assess her serum albumin, TRISHA titer, ANCA titer, and serum protein electrophoresis. 2. Chest x-ray, renal ultrasound. 3. Check levels of iron, ferritin. 4. I agree with current blood pressure management with an MAMI inhibitor. This could help to control her proteinuria. If the above tests are negative, to find a primary cause of her proteinuria, then one would need to consider a renal biopsy . This certainly would not be done now and would need to be done at a later time. The patient should be followed as an outpatient for both her blood pressure control and the proteinuria. I did give the patient my card to follow up with me as an outpatient for further evaluation and treatment. Dictated By: Kenrick Nuñez MD /sabrina/chela /Document#: [id number] ROSAMARIA
[2017-02-04] MEDS: metroNIDAZOLE 500 MG/NS (PMX) 100 ML IVPB SCH (05:50)
[2017-02-04] MEDS ORDERED: PANTOPRAZOLE (EC) 40 MG TAB PO SCH (06:00)
[2017-02-04 06:52] LABS: BASOPHILS % 0.3 % (0.0-2.0); EOSINOPHILS # 0.3 10^3/ul (0.0-0.5); EOSINOPHILS % 3.8 % (0.0-7.0); HEMATOCRIT 33.1 % (37.0-47.0); HEMOGLOBIN 10.1 g/dl (12.0-16.0); LYMPHOCYTES # 1.6 10^3/ul (0.8-2.9); LYMPHOCYTES % 24.1 % (15.0-51.0); MEAN CORPUSCULAR HEMOGLOBIN 24.2 pg (29.0-33.0); MEAN CORPUSCULAR HGB CONC 30.5 g/dl (32.0-37.0); MEAN CORPUSCULAR VOLUME 79.4 fl (82.0-101.0); MEAN PLATELET VOLUME 9.7 fl (7.4-10.4); MONOCYTE # 0.5 10^3/ul (0.3-0.9); MONOCYTES % 7.7 % (0.0-11.0); NEUTROPHIL # 4.2 10^3/ul (1.6-7.5); NEUTROPHILS % 63.8 % (39.0-77.0); PLATELET COUNT 448 10^3/UL (140-415); RED BLOOD COUNT 4.17 10^6/ul (4.20-5.40); RED CELL DISTRIBUTION WIDTH 16.5 % (11.5-14.5); WHITE BLOOD COUNT 6.6 10^3/ul (4.8-10.8)
[2017-02-04 07:12] LABS: ALBUMIN 3.8 g/dl (3.3-4.9); BILIRUBIN,INDIRECT 0.2 mg/dl (0-1.1); BILIRUBIN,TOTAL 0.2 mg/dl (0.2-1.3); CALCIUM 9.3 mg/dl (8.4-10.2); CREATININE 0.64 mg/dl (0.44-1.00); POTASSIUM 4.1 mmol/L (3.5-5.1); TOTAL PROTEIN 7.6 g/dl (6.1-8.1)
[2017-02-04 07:41] LABS: TOTAL IRON BINDING CAPACITY 314 ug/dl (241-421)
[2017-02-04 07:43] LABS: FERRITIN 19.2 ng/ml (6.2-137.0)
[2017-02-04 07:44] LABS: THYROID STIMULATING HORMONE 1.82 MIU/L (0.465-4.680)
[2017-02-04 07:47] LABS: IRON < 10 ug/dl (35-150)
--- NOTE | 2017-02-04 08:07 | PN ---
Date/Time of Note Date/Time of Note DATE: 02/04/17 TIME: 08:03 Assessment/Plan VTE Prophylaxis VTE Prophylaxis Intervention: ambulation, LMWH Lines/Catheters IV C[facility]ter Type (from [facility]): Peripheral IV Urinary Cath still in place: No Assessment/Plan Chief Complaint/Hosp Course Afebrile,BP are now normal.May be discharged on Lisinopril.Prescription given to patient. 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 Subjective 24 Hr Interval Summary Free Text/Dictation Afebrile,feels well today.BP are normal on Lisinopril 20 mg daily. Exam/Review of Systems Vital Signs Vitals Vital Signs Date Time Temp Pulse Resp B/P Pulse Ox O2 Delivery O2 Flow Rate FiO2 02/04/17 02:44 98.2 84 18 138/67 96 Intake and Output 02/03/17 02/03/17 02/04/17 15:00 23:00 07:00 Intake Total 1620 ml 820 ml Output Total 1700 ml Balance -80 ml 820 ml Results Result Diagram: 02/04/17 0557 02/04/17 0557 Results 24 hrs Laboratory Tests Test 02/03/17 10:40 02/04/17 05:57 Urine Color YELLOW Urine Clarity CLEAR Urine pH 6.0 Urine Specific [place] 1.014 Urine Ketones NEGATIVE Urine Nitrite NEGATIVE Urine Bilirubin NEGATIVE Urine Urobilinogen NEGATIVE Urine Leukocyte Esterase TRACE A Urine Microscopic RBC 21 H Urine Microscopic WBC 6 H Urine Hemoglobin 2+ H Urine Random Creatinine 81.79 Urine Glucose NEGATIVE Urine Total Protein 2+ H White Blood Count 6.6 # Red Blood Count 4.17 #L Hemoglobin 10.1 #L Hematocrit 33.1 #L Mean Corpuscular Volume 79.4 L Mean Corpuscular Hemoglobin 24.2 L Mean Corpuscular Hemoglobin Concent 30.5 L Red Cell Distribution Width 16.5 H Platelet Count 448 #H Mean Platelet Volume 9.7 Neutrophils % 63.8 Lymphocytes % 24.1 Monocytes % 7.7 Eosinophils % 3.8 Basophils % 0.3 Nucleated Red Blood Cells % 0.0 Neutrophils # 4.2 Lymphocytes # 1.6 Monocytes # 0.5 Eosinophils # 0.3 Basophils # 0.0 Nucleated Red Blood Cells # 0.0 Sodium Level 146 H Potassium Level 4.1 Chloride Level 102 Carbon Dioxide Level 27 Anion Gap 21 H Blood Urea Nitrogen 14 Creatinine 0.64 Glucose Level 92 Calcium Level 9.3 Iron Level < 10 L Total Iron Binding Capacity 314 Percent Iron Saturation Ferritin 19.2 Total Bilirubin 0.2 Direct Bilirubin 0.00 Indirect Bilirubin 0.2 Aspartate Amino Transf (AST/SGOT) 31 Alanine Aminotransferase (ALT/SGPT) 40 Alkaline Phosphatase 67 Total Protein 7.6 Albumin 3.8 Globulin 3.80 H Albumin/Globulin Ratio 1.00 Thyroid Stimulating Hormone (TSH) 1.820 Medications Medications Current Medications Acetaminophen (Tylenol Tab) 650 mg Q4H PRN PO PAIN LEVEL 1-5 Last administered on 02/02/17 07:53; Admin Dose 650 MG; Start 01/29/17 at 15:00 Ibuprofen (Motrin) 600 mg Q8H PRN PO PAIN AND OR ELEVATED TEMP Last administered on 02/02/17 14:07; Admin Dose 600 MG; Start 01/29/17 at 15:00 Oxycodone/ Acetaminophen (Percocet (5/ 325)) 1 tab Q4H PRN PO PAIN LEVEL 6-10 Last administered on 02/03/17 10:37; Admin Dose 1 TAB; Start 01/29/17 at 15:00 Ondansetron HCl (Zofran Inj) 4 mg Q6H PRN IV NAUSEA AND/OR VOMITING Last administered on 01/29/17 23:05; Admin Dose 4 MG; Start 01/29/17 at 15:00 Oxycodone/ Acetaminophen (Percocet (5/ 325)) 2 tab Q4H PRN PO PAIN Last administered on 02/02/17 13:11; Admin Dose 2 TAB; Start 01/29/17 at 15:00 Enoxaparin Sodium (Lovenox) 40 mg DAILY SC Last administered on 02/03/17 08:51 ; Admin Dose 40 MG; Start 01/30/17 at 09:00 Morphine Sulfate (morphine) 2 mg Q2H PRN IV BREAKTHROUGH PAIN Last administered on 02/03/17 12:38; Admin Dose 2 MG; Start 01/31/17 at 12:00 Magnesium Hydroxide (Milk Of Mag) 30 ml BID PO Last administered on 02/03/17 21 :13; Admin Dose 30 ML; Start 01/31/17 at 13:30 Famotidine (Pepcid) 20 mg BID PO Last administered on 02/03/17 21:13; Admin Dose 20 MG; Start 01/31/17 at 21:00 Pantoprazole (Protonix Tab) 40 mg DAILY@06 PO Last administered on 02/04/17 05: 50; Admin Dose 40 MG; Start 02/04/17 at 06:00 Lisinopril (Zestril) 20 mg DAILY PO ; Start 02/04/17 at 09:00 SIL ACKERMAN MD Feb 04, 2017 08:07
--- NOTE | 2017-02-04 08:10 | PD.PPDC ---
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 Condition Patient Condition: Good Diet Diet: Special Diet Special Diet: Low salt diet. 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
[2017-02-04 08:26] VITALS: BP 163/77; RESP 20
[2017-02-04] MEDS ORDERED: LISINOPRIL 20 MG TAB PO SCH (09:00)
--- NOTE | 2017-02-04 09:04 | RADRPT ---
PROCEDURE: Retroperitoneal US. CLINICAL INDICATION: Proteinuria, pain TECHNIQUE: Multiple sonographic images of the kidneys and retroperitoneum were obtained. The imag es were reviewed on a PACS workstation. COMPARISON: No prior studies are available for comparison. FINDINGS: The kidneys are normal in size, contour, cortical thickness and cortical echogenicity. The right kidney measures 10.9 cm. The left kidney measures 10.9 cm. No kidney stones are visualized. There is no evidence for hydronephrosis. The urinary bladder is not visualized. The aorta and IVC were not imaged. RPTAT: AA IMPRESSION: Unremarkable retroperitoneal ultrasound. .Torito Fischer MD, MD Date Time Electronically viewed and signed by .Torito Fischer MD, MD on 02/04/2017 09:04 .S/
[2017-02-04] MEDS: ACETAMINOPHEN 325 MG TAB PO PRN (09:10)
[2017-02-04] MEDS: MAGNESIUM HYDROXIDE 30ML CUP PO SCH (09:10)
[2017-02-04] MEDS: FAMOTIDINE 20 MG TAB PO SCH (09:10)
[2017-02-04] MEDS: ENOXAPARIN 40 MG/0.4 ML SYG SC SCH (09:11)
[2017-02-04 10:50] VITALS: BP 145/73; PULSE 79
[2017-02-05 04:53] LABS: PROTEIN, TOTAL 6.9 g/dL (6.1-8.1)
[2017-02-05 12:07] LABS: MYELOPEROXIDASE ANTIBODY <1.0 AI; PROTEINASE-3 ANTIBODY <1.0 AI
[2017-02-05 17:15] LABS: ANA SCREEN POSITIVE (NEGATIVE)
[2017-02-05 20:05] LABS: ALBUMIN 3.5 g/dL (3.8-4.8)
== END 2017-02-04 11:53 | disposition home or self-care (01) | DRG 742 ==
LOC: REC 10:48 → PP2 17:25
PROVIDERS: ADMIT Specialist; ATTEND Specialist
PROC: 0UTC0ZZ Resection of Cervix, Open Approach (ICD-10-PCS; 2017-01-29)
PROC: 0UT20ZZ Resection of Bilateral Ovaries, Open Approach (ICD-10-PCS; 2017-01-29)
PROC: 0UT70ZZ Resection of Bilateral Fallopian Tubes, Open Approach (ICD-10-PCS; 2017-01-29)
PROC: 0UT90ZZ Resection of Uterus, Open Approach (ICD-10-PCS; principal; 2017-01-29 12:30)
DX: D25.9 Leiomyoma of uterus, unspecified (principal); I16.9 Hypertensive crisis, unspecified; I10 Essential (primary) hypertension; R31.29 Other microscopic hematuria; R80.9 Proteinuria, unspecified; R19.7 Diarrhea, unspecified
CPT/HCPCS: 71010; 76775; 80048; 80053; 80061; 81001; 81003; 82728; 83036; 83540; 84155; 84165; 84443; 84703; 85025; 86021; 86038; 87045; 87086; 88305; 93005; C9113; J0131; J0690; J1100; J1170; J1650; J1885; J2250; J2270; J2274; J2405; J3010; J7120